=== PATIENT | male | born 1975 | race Two or more races ===

== ENCOUNTER 2022-04-01 11:16 | Inpatient (IN) | payer OTHER ==
[~2022-04-01] VITALS: Ht 172.7 cm; Wt 61.4 kg
[2022-04-01 13:36] LABS: BASOPHILS % (AUTO) 0.3 % (0.0-2.0); EOSINOPHILS % (AUTO) 3.7 % (1.0-6.0); HEMATOCRIT 40.8 % (41-53); HEMOGLOBIN 13.7 g/dL (13.5-17.5); LYMPHOCYTES # (AUTO) 1.5 K/uL (1.0-4.8); LYMPHOCYTES % (AUTO) 17.6 % (22.0-44.0); MEAN CORPUSCULAR HEMOGLOBIN 30.6 pg (26.0-34.0); MEAN CORPUSCULAR HGB CONC 33.5 G/dL (31.0-37.0); MEAN CORPUSCULAR VOLUME 91 fL (80-100); MONOCYTES # (AUTO) 0.7 K/uL (0.1-1.0); MONOCYTES % (AUTO) 8.4 % (2.0-9.0); PLATELET COUNT (AUTO) 247 K/uL (150-450); RED BLOOD CELL COUNT(AUTO) 4.46 MIL/uL (4.50-5.90); RED CELL DISTRIBUTION WIDTH 13.5 % (11.5-14.5)
[2022-04-01 14:06] LABS: ANION GAP 7 mmol/L (8-16); CALCIUM, TOTAL 8.4 mg/dL (8.8-10.5); CARBON DIOXIDE 27 mmol/L (22-29); CHLORIDE 106 mmol/L (98-107); CREATININE 0.72 mg/dL (0.60-1.30); GLOMERULAR FILTR. RATE CALC > 60 mL/min (>60); GLUCOSE,RANDOM 88 mg/dL (70-110); POTASSIUM 3.9 mmol/L (3.5-5.1); SODIUM SERUM 140 mmol/L (136-145); UREA NITROGEN, BLOOD 16 mg/dL (7-18)
[2022-04-01 14:11] LABS: ALANINE AMINOTRANSFERASE 36 U/L (12-78); ALBUMIN 3.2 g/dL (3.4-5.0); ALKALINE PHOSPHATASE 93 U/L (46-116); ASPARTATE AMINOTRANSFERASE 29 U/L (15-37); BILIRUBIN,TOTAL 0.5 mg/dL (0.1-1.0); TOTAL PROTEIN, SERUM 7.1 g/dL (6.4-8.2)
[2022-04-01 14:48] LABS: COVID AG,FIA SOURCE NASOPHARYNGEAL
[2022-04-01] MEDS ORDERED: MAGNESIUM HYDROXIDE SUSPENSION 30 ML UDCUP PO PRN (15:00)
[2022-04-01] MEDS ORDERED: ACETAMINOPHEN 325 MG TABLET PO PRN (15:00)
[2022-04-01 16:54] VITALS: BP 95/60
[2022-04-01] MEDS ORDERED: SODIUM CHLORIDE 3% 15 ML NEB SOLUTION NEB ONE (17:30)
[2022-04-01 20:00] VITALS: BP 110/58
[2022-04-01] MEDS ORDERED: 0.9% SODIUM CHLORIDE 5 ML NEB SOLUTION NEB ONE ×2 (22:25→22:41)
[2022-04-02 04:33] VITALS: BP 101/60
[2022-04-02 08:06] LABS: HIV 1-2 SCREEN 4TH GEN W/RFLX Non Reactive (Non Reactive)
[2022-04-02 08:50] VITALS: BP 103/65
[2022-04-02] MEDS: FAMOTIDINE 20 MG TABLET PO SCH (09:53)
[2022-04-02] MEDS ORDERED: SODIUM CHLORIDE 3% 15 ML NEB SOLUTION NEB ONE ×2 (14:54→23:30)
[2022-04-02 20:16] VITALS: BP 98/58
[2022-04-03 04:49] VITALS: BP 114/67
[2022-04-03 07:07] LABS: QUANTIFERON, TB GOLD PLUS Positive (Negative)
[2022-04-03 08:07] VITALS: BP 124/63
[2022-04-03] MEDS: FAMOTIDINE 20 MG TABLET PO SCH (09:06)
[2022-04-03 15:54] VITALS: BP 108/69
[2022-04-03 20:10] VITALS: BP 101/57
[2022-04-04 04:57] VITALS: BP 111/57
[2022-04-04 08:34] VITALS: BP 91/46
[2022-04-04] MEDS: FAMOTIDINE 20 MG TABLET PO SCH (08:57)
[2022-04-04 16:12] VITALS: BP 94/55
[2022-04-04 20:30] VITALS: BP 106/63
[2022-04-05 04:42] VITALS: BP 101/66
[2022-04-05 07:43] VITALS: BP 104/68
[2022-04-05] MEDS: FAMOTIDINE 20 MG TABLET PO SCH (08:20)
[2022-04-05 15:25] VITALS: BP 108/70
[2022-04-05 19:36] VITALS: BP 104/58
[2022-04-06 04:19] VITALS: BP 97/58
[2022-04-06 08:03] VITALS: BP 101/62
[2022-04-06] MEDS: FAMOTIDINE 20 MG TABLET PO SCH (08:36)
[2022-04-06 15:37] VITALS: BP 102/64
[2022-04-06 20:12] VITALS: BP 103/62
[2022-04-06] MEDS: ZOLPIDEM TARTRATE 5 MG TABLET PO PRN (20:36)
[2022-04-07 04:55] VITALS: BP 96/56
[2022-04-07 08:11] VITALS: BP 102/58
[2022-04-07] MEDS: FAMOTIDINE 20 MG TABLET PO SCH (08:24)
[2022-04-07 16:07] VITALS: BP 96/65
[2022-04-07 19:50] VITALS: BP 101/55
[2022-04-07] MEDS: ZOLPIDEM TARTRATE 5 MG TABLET PO PRN (21:13)
[2022-04-08 04:30] VITALS: BP 98/51
[2022-04-08 08:10] VITALS: BP 97/66
[2022-04-08] MEDS: FAMOTIDINE 20 MG TABLET PO SCH (11:58)
[2022-04-08] MEDS ORDERED: FentaNYL CITRATE PF 100 MCG/2 ML VIAL ONE (15:37)
[2022-04-08] MEDS ORDERED: FLUMAZENIL 0.1 MG/ML 5 ML VIAL IVP ONE (15:37)
[2022-04-08] MEDS ORDERED: NALOXONE HCL 0.4 MG/ML VIAL ONE (15:37)
[2022-04-08] MEDS ORDERED: LIDOCAINE/PF 1% 5 ML VIAL ONE (15:37)
[2022-04-08] MEDS ORDERED: MIDAZOLAM HCL 2 MG/2 ML VIAL ONE (15:37)
[2022-04-08 15:40] VITALS: BP 98/61
[2022-04-08 20:05] VITALS: BP 107/69
[2022-04-09 04:37] VITALS: BP 95/55
[2022-04-09 08:00] VITALS: BP 128/78
[2022-04-09] MEDS: FAMOTIDINE 20 MG TABLET PO SCH (08:39)
[2022-04-09 15:44] LABS: BASOPHILS % (AUTO) 0.4 % (0.0-2.0); EOSINOPHILS % (AUTO) 5.3 % (1.0-6.0); HEMATOCRIT 39.1 % (41-53); HEMOGLOBIN 13.4 g/dL (13.5-17.5); LYMPHOCYTES # (AUTO) 1.8 K/uL (1.0-4.8); LYMPHOCYTES % (AUTO) 24.7 % (22.0-44.0); MEAN CORPUSCULAR HEMOGLOBIN 30.5 pg (26.0-34.0); MEAN CORPUSCULAR HGB CONC 34.2 G/dL (31.0-37.0); MEAN CORPUSCULAR VOLUME 89 fL (80-100); MONOCYTES # (AUTO) 0.5 K/uL (0.1-1.0); MONOCYTES % (AUTO) 7.4 % (2.0-9.0); NEUTROPHILS # (AUTO) 4.5 K/uL (1.8-7.7); NEUTROPHILS % (AUTO) 62.2 % (40.0-70.0); PLATELET COUNT (AUTO) 226 K/uL (150-450); RED BLOOD CELL COUNT(AUTO) 4.39 MIL/uL (4.50-5.90); RED CELL DISTRIBUTION WIDTH 13.3 % (11.5-14.5)
[2022-04-09 15:52] LABS: ANION GAP 6 mmol/L (8-16); CARBON DIOXIDE 30 mmol/L (22-29); CHLORIDE 102 mmol/L (98-107); CREATININE 0.73 mg/dL (0.60-1.30); GLOMERULAR FILTR. RATE CALC > 60 mL/min (>60); GLUCOSE,RANDOM 94 mg/dL (70-110); POTASSIUM 3.7 mmol/L (3.5-5.1); SODIUM SERUM 138 mmol/L (136-145); UREA NITROGEN, BLOOD 17 mg/dL (7-18)
[2022-04-09 15:53] LABS: CALCIUM, TOTAL 8.4 mg/dL (8.8-10.5)
[2022-04-09 15:58] LABS: ALANINE AMINOTRANSFERASE 53 U/L (12-78); ALKALINE PHOSPHATASE 84 U/L (46-116); ASPARTATE AMINOTRANSFERASE 26 U/L (15-37); BILIRUBIN,TOTAL 0.5 mg/dL (0.1-1.0); TOTAL PROTEIN, SERUM 6.6 g/dL (6.4-8.2)
[2022-04-09 16:00] VITALS: BP 102/68
[2022-04-09] MEDS: RIFAMPIN 300 MG CAPSULE PO SCH (17:46)
[2022-04-09] MEDS: PYRAZINAMIDE 500 MG TABLET PO SCH (17:46)
[2022-04-09] MEDS: ISONIAZID 300 MG TABLET PO SCH (17:47)
[2022-04-09] MEDS: ETHAMBUTOL HCL 400 MG TABLET PO SCH (17:47)
[2022-04-09] MEDS: PYRIDOXINE HCL 50 MG TABLET PO SCH (17:47)
[2022-04-09 19:45] VITALS: BP 96/53
[2022-04-10 04:20] VITALS: BP 106/73
[2022-04-10] MEDS: PYRAZINAMIDE 500 MG TABLET PO SCH (08:47)
[2022-04-10] MEDS: FAMOTIDINE 20 MG TABLET PO SCH (08:48)
[2022-04-10] MEDS: PYRIDOXINE HCL 50 MG TABLET PO SCH (08:48)
[2022-04-10] MEDS: ISONIAZID 300 MG TABLET PO SCH (08:48)
[2022-04-10] MEDS: ETHAMBUTOL HCL 400 MG TABLET PO SCH (08:48)
[2022-04-10] MEDS: RIFAMPIN 300 MG CAPSULE PO SCH (08:48)
[2022-04-10 08:54] VITALS: BP 111/74
[2022-04-10 16:35] VITALS: BP 97/65
[2022-04-10 20:23] VITALS: BP 99/65
[2022-04-11 04:56] VITALS: BP 96/52
[2022-04-11 08:00] VITALS: BP 97/57
[2022-04-11] MEDS: ETHAMBUTOL HCL 400 MG TABLET PO SCH (09:10)
[2022-04-11] MEDS: FAMOTIDINE 20 MG TABLET PO SCH (09:10)
[2022-04-11] MEDS: RIFAMPIN 300 MG CAPSULE PO SCH (09:10)
[2022-04-11] MEDS: PYRIDOXINE HCL 50 MG TABLET PO SCH (09:10)
[2022-04-11] MEDS: ISONIAZID 300 MG TABLET PO SCH (09:11)
[2022-04-11] MEDS: PYRAZINAMIDE 500 MG TABLET PO SCH (09:11)
[2022-04-11 16:00] VITALS: BP 110/69
[2022-04-11 20:27] VITALS: BP 100/64
[2022-04-12 04:28] VITALS: BP 108/63
[2022-04-12 08:23] VITALS: BP 105/61
[2022-04-12] MEDS: PYRAZINAMIDE 500 MG TABLET PO SCH (08:57)
[2022-04-12] MEDS: FAMOTIDINE 20 MG TABLET PO SCH (08:57)
[2022-04-12] MEDS: RIFAMPIN 300 MG CAPSULE PO SCH (08:57)
[2022-04-12] MEDS: PYRIDOXINE HCL 50 MG TABLET PO SCH (08:57)
[2022-04-12] MEDS: ISONIAZID 300 MG TABLET PO SCH (08:57)
[2022-04-12] MEDS: ETHAMBUTOL HCL 400 MG TABLET PO SCH (08:57)
[2022-04-12 16:03] VITALS: BP 107/62
[2022-04-12 20:18] VITALS: BP 100/61
[2022-04-13 04:49] VITALS: BP 98/61
[2022-04-13 08:14] VITALS: BP 115/64
[2022-04-13] MEDS: ETHAMBUTOL HCL 400 MG TABLET PO SCH (08:23)
[2022-04-13] MEDS: PYRIDOXINE HCL 50 MG TABLET PO SCH (08:23)
[2022-04-13] MEDS: FAMOTIDINE 20 MG TABLET PO SCH (08:23)
[2022-04-13] MEDS: PYRAZINAMIDE 500 MG TABLET PO SCH (08:23)
[2022-04-13] MEDS: RIFAMPIN 300 MG CAPSULE PO SCH (08:23)
[2022-04-13] MEDS: ISONIAZID 300 MG TABLET PO SCH (08:48)
[2022-04-13 16:13] VITALS: BP 107/69
[2022-04-13 19:57] VITALS: BP 100/56
[2022-04-14 05:24] VITALS: BP 110/68
[2022-04-14 08:08] VITALS: BP 99/62
[2022-04-14] MEDS: PYRIDOXINE HCL 50 MG TABLET PO SCH (08:27)
[2022-04-14] MEDS: RIFAMPIN 300 MG CAPSULE PO SCH (08:27)
[2022-04-14] MEDS: FAMOTIDINE 20 MG TABLET PO SCH (08:27)
[2022-04-14] MEDS: PYRAZINAMIDE 500 MG TABLET PO SCH (08:27)
[2022-04-14] MEDS: ETHAMBUTOL HCL 400 MG TABLET PO SCH (08:27)
[2022-04-14] MEDS: ISONIAZID 300 MG TABLET PO SCH (08:27)
[2022-04-14 20:00] VITALS: BP 104/66
[2022-04-15 04:00] VITALS: BP 105/62
[2022-04-15 08:00] LABS: BASOPHILS % (AUTO) 0.4 % (0.0-2.0); EOSINOPHILS % (AUTO) 7.6 % (1.0-6.0); HEMATOCRIT 41.2 % (41-53); HEMOGLOBIN 14.1 g/dL (13.5-17.5); LYMPHOCYTES # (AUTO) 1.3 K/uL (1.0-4.8); LYMPHOCYTES % (AUTO) 22.5 % (22.0-44.0); MEAN CORPUSCULAR HEMOGLOBIN 30.9 pg (26.0-34.0); MEAN CORPUSCULAR HGB CONC 34.2 G/dL (31.0-37.0); MEAN CORPUSCULAR VOLUME 90 fL (80-100); MONOCYTES # (AUTO) 0.4 K/uL (0.1-1.0); MONOCYTES % (AUTO) 7.2 % (2.0-9.0); NEUTROPHILS # (AUTO) 3.5 K/uL (1.8-7.7); NEUTROPHILS % (AUTO) 62.3 % (40.0-70.0); PLATELET COUNT (AUTO) 210 K/uL (150-450); RED BLOOD CELL COUNT(AUTO) 4.55 MIL/uL (4.50-5.90); RED CELL DISTRIBUTION WIDTH 13.7 % (11.5-14.5)
[2022-04-15 08:07] VITALS: BP 99/69
[2022-04-15 08:16] LABS: ALANINE AMINOTRANSFERASE 49 U/L (12-78); ALBUMIN 3.1 g/dL (3.4-5.0); ALKALINE PHOSPHATASE 78 U/L (46-116); ANION GAP 3 mmol/L (8-16); ASPARTATE AMINOTRANSFERASE 24 U/L (15-37); BILIRUBIN,TOTAL 0.3 mg/dL (0.1-1.0); CALCIUM, TOTAL 8.1 mg/dL (8.8-10.5); CARBON DIOXIDE 31 mmol/L (22-29); CHLORIDE 103 mmol/L (98-107); CREATININE 0.76 mg/dL (0.60-1.30); GLOMERULAR FILTR. RATE CALC > 60 mL/min (>60); GLUCOSE,RANDOM 92 mg/dL (70-110); SODIUM SERUM 137 mmol/L (136-145); TOTAL PROTEIN, SERUM 6.8 g/dL (6.4-8.2); UREA NITROGEN, BLOOD 16 mg/dL (7-18)
[2022-04-15] MEDS: FAMOTIDINE 20 MG TABLET PO SCH (09:17)
[2022-04-15] MEDS: ETHAMBUTOL HCL 400 MG TABLET PO SCH (09:17)
[2022-04-15] MEDS: ISONIAZID 300 MG TABLET PO SCH (09:17)
[2022-04-15] MEDS: PYRIDOXINE HCL 50 MG TABLET PO SCH (09:17)
[2022-04-15] MEDS: PYRAZINAMIDE 500 MG TABLET PO SCH (09:17)
[2022-04-15] MEDS: RIFAMPIN 300 MG CAPSULE PO SCH (09:18)
[2022-04-15 15:53] VITALS: BP 102/68
[2022-04-15 20:23] VITALS: BP 99/62
[2022-04-16 04:25] VITALS: BP 101/64
[2022-04-16 08:00] VITALS: BP 98/2
[2022-04-16] MEDS: RIFAMPIN 300 MG CAPSULE PO SCH (09:31)
[2022-04-16] MEDS: PYRAZINAMIDE 500 MG TABLET PO SCH (09:31)
[2022-04-16] MEDS: FAMOTIDINE 20 MG TABLET PO SCH (09:31)
[2022-04-16] MEDS: PYRIDOXINE HCL 50 MG TABLET PO SCH (09:31)
[2022-04-16] MEDS: ETHAMBUTOL HCL 400 MG TABLET PO SCH (09:31)
[2022-04-16] MEDS: ISONIAZID 300 MG TABLET PO SCH (09:31)
[2022-04-16] MEDS ORDERED: FAMO20TA8 PO (13:00)
[2022-04-16] MEDS ORDERED: ISON300 PO (13:00)
[2022-04-16] MEDS ORDERED: PYRA500 PO (13:01)
[2022-04-16] MEDS ORDERED: PYRI-6 PO (13:02)
[2022-04-16] MEDS ORDERED: RIFA300 PO (13:02)
[2022-04-16] MEDS ORDERED: ETHA400T33 PO (13:04)
== END 2022-04-16 14:36 | DRG 179 ==
LOC: EMS 11:16 → 6S 14:46
PROVIDERS: ADMIT Internal Medicine; ATTEND Internal Medicine
DX: A15.9 Respiratory tuberculosis unspecified (principal); J40 Bronchitis, not specified as acute or chronic; Z53.20 Procedure and treatment not carried out because of patient's decision for unspecified reasons; R91.1 Solitary pulmonary nodule; Z87.891 Personal history of nicotine dependence; Z78.9 Other specified health status
CPT/HCPCS: 71045; 71250; 80053; 85025; 86403; 86480; 86635; 87015; 87206; 87305; 87389; 87449; 87556; 94640; 94799; 99285; J2001; J2250; J2310; J3010; J3490; 36415-L1; 36415-TC